=== PATIENT | male | born 1980 | race African-American/Black ===

== ENCOUNTER 2019-11-09 07:53 | Emergency (ER) | payer SELFPAY ==
[2019-11-09 08:02] VITALS: BP 134/78; PULSE 77; RESP 16; TEMP 98.7
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
[2019-11-09] MEDS ORDERED: cefTRIAXone 1,000 MG VIAL (IM USE) IM STA (08:38)
== END 2019-11-09 08:52 | disposition home or self-care (01) ==
LOC: EC 07:53
DX: L02.215 Cutaneous abscess of perineum (principal)
CPT/HCPCS: 99282; 10060; 96372; J0696